=== PATIENT | male | born 2000 | race Caucasian/White ===

== ENCOUNTER 2025-04-01 10:53 | Outpatient (REF) | payer MEDICAID, SELFPAY ==
[2025-04-01 13:44] LABS: Alanine Aminotransferase 27 U/L (0-40); Albumin Level 5.0 g/dL (3.5-5.0); Alkaline Phosphatase 121 U/L (39-117); Anion Gap 15 (12-20); Aspartate Amino Transferase 28 U/L (5-37); Blood Urea Nitrogen 16 mg/dL (9-16); Calcium 9.6 mg/dL (8.4-10.2); Carbon Dioxide 26 mmol/L (22-29); Chloride 105 mmol/L (96-108); Estimated Glomerular Filt Rate > 60; Potassium 3.6 mmol/L (3.3-5.1); Sodium 142 mmol/L (135-145); Total Protein 8.2 g/dL (6.5-8.0)
--- OUTSIDE RECORDS SUMMARY | 2025-04-01 14:21 | XMS_ITS | Encounter Summary ---
Author Organization [facility] Address [address] [place] [address] Phone Care Team Providers Care High School Chemistry Teacher Name Role Phone Emily Muñoz MD Primary Care Provider Encounter Details Date Type Department Care Team (Late st Contact Info) Description 07/05/2016 Documentation [facility] [place] [address] [place] [address] Family Medicine, Physician [address] [place], [place] [address] Social History Tobacco Use Types Packs/Day Years Used Date Smoking Tobacco: Never Comments:Never smoker Sex and Gender Information Value Date Recorded Sex Assigned at Not on file Legal Sex Male 5:15 PM EDT Gender Identity Not on file Sexual Orientation Not on file documented as of this encounter Plan of Treatment Not on file documented as of this encounter Visit Diagnoses Not on filedocumented in this encounter Care Teams High School Chemistry Teacher Relationship Specialty Start Date End Date Emily Muñoz MD [address] [place] [address] [place] [address] PCP - General 12/16/16 06/15/21 Parmjit Barrientos [address] [place] [address] [place] [address] 08/02/18 06/15/21 documented as of this encounter
--- OUTSIDE RECORDS SUMMARY | 2025-04-01 14:21 | XMS_ITS | Encounter Summary ---
Author Organization [facility] Address [address] [place] [address] Phone Care Team Providers Care Retail Services Professional Name Role Phone Emily Muñoz MD Primary Care Provider [phone] Encounter Details Date Type Department Care Team (Late st Contact Info) Description 11/13/2014 Documentation [facility] [place] [address] [place] [address] Family Medicine, Physician [address] [place], [place] [phone] Social History Tobacco Use Types Packs/Day Years Used Date Smoking Tobacco: Never Assessed Sex and Gender Information Value Date Recorded Sex Assigned at Not on file Legal Sex Male 5:15 PM EDT Gender Identity Not on file Sexual Orientation Not on file documented as of this encounter Plan of Treatment Not on file documented as of this encounter Visit Diagnoses Not on filedocumented in this encounter Care Teams Retail Services Professional Relationship Specialty Start Date End Date Emily Muñoz MD [address] [place] [address] [place] [address] PCP - General 12/16/16 06/15/21 Parmjit Barrientos [address] [place] [address] 08/02/18 06/15/21 documented as of this encounter
--- OUTSIDE RECORDS SUMMARY | 2025-04-01 14:21 | XMS_ITS | Encounter Summary ---
Author Organization [facility] Address [address] [place] [address] Phone Care Team Providers Care Hogshead Salvage Name Role Phone Emily Muñoz MD Primary Care Provider [phone] Encounter Details Date Type Department Care Team (Late st Contact Info) Description 12/22/2016 Conversion Encounter [facility] [place] [address] [place] [address] Social History Tobacco Use Types Packs/Day Years [...] on filedocumented in this encounter Care Teams Hogshead Salvage Relationship Specialty Start Date End Date Emily Muñoz MD [address] [place] [address] PCP - General 12/16/16 06/15/21 Parmjit Barrientos [address] [place] [address] 08/02/18 06/15/21 documented as of this encounter
--- OUTSIDE RECORDS SUMMARY | 2025-04-01 14:21 | XMS_ITS | Encounter Summary ---
Author Organization [facility] Address [address] [place] [address] Phone Care Team Providers Care Exhibition Organiser Name Role Phone Emily Muñoz MD Primary Care Provider [phone] Encounter Details Date Type Department Care Team (Late st Contact Info) Description 08/15/2011 Documentation [facility] [place] Family Medicine [address] [place] [address] Family Medicine, Physician [address] [place], [place] [phone] Social History Tobacco Use Types Packs/Day Years [...] on filedocumented in this encounter Care Teams Exhibition Organiser Relationship Specialty Start Date End Date Emily Muñoz MD [address] [place] [address] [place] [address] PCP - General 12/16/16 06/15/21 Parmjit Barrientos [address] [place] [address] 08/02/18 06/15/21 documented as of this encounter
--- OUTSIDE RECORDS SUMMARY | 2025-04-01 14:21 | XMS_ITS | Encounter Summary ---
Author Organization [facility] Address [address] [place] [address] Phone Care Team Providers Care Machine Maintenance Technician Name Role Phone Emily Muñoz MD Primary Care Provider [phone] Encounter Details Date Type Department Care Team (Late st Contact Info) Description 01/21/2010 Documentation [facility] [place] Family Medicine [address] [place] [address] Family Medicine, Physician [address] [place], [place] [phone] Social History Tobacco Use Types Packs/Day Years [...] on filedocumented in this encounter Care Teams Machine Maintenance Technician Relationship Specialty Start Date End Date Emily Muñoz MD [address] [place] [address] [place] [address] PCP - General 12/16/16 06/15/21 Parmjit Barrientos [address] [place] [address] 08/02/18 06/15/21 documented as of this encounter
--- OUTSIDE RECORDS SUMMARY | 2025-04-01 14:21 | XMS_ITS | Encounter Summary ---
Author Organization [facility] Address [address] [place] [address] Phone Care Team Providers Care Merchant Police Name Role Phone Emily Muñoz MD Primary Care Provider [phone] Encounter Details Date Type Department Care Team (Late st Contact Info) Description 03/28/2011 Documentation [facility] [place] [address] [place] [address] Family Medicine, Physician [address] [place], [place] [phone] Social History Tobacco Use Types Packs/Day Years [...] on filedocumented in this encounter Care Teams Merchant Police Relationship Specialty Start Date End Date Emily Muñoz MD [address] [place] [address] [place] [address] PCP - General 12/16/16 06/15/21 Parmjit Barrientos [address] [place] [address] 08/02/18 06/15/21 documented as of this encounter
--- OUTSIDE RECORDS SUMMARY | 2025-04-01 14:21 | XMS_ITS | Encounter Summary ---
Author Organization [facility] Address [address] [place] [address] Phone Care Team Providers Care Dry Kiln Loader Name Role Phone Emily Muñoz MD Primary Care Provider [phone] Encounter Details Date Type Department Care Team (Late st Contact Info) Description 04/22/2015 Documentation [facility] [place] [address] [place] [address] Family Medicine, Physician [address] [place], [place] [phone] Social History Tobacco Use Types Packs/Day Years [...] on filedocumented in this encounter Care Teams Dry Kiln Loader Relationship Specialty Start Date End Date Emily Muñoz MD [address] [place] [address] [place] [address] PCP - General 12/16/16 06/15/21 Parmjit Barrientos [address] [place] [address] 08/02/18 06/15/21 documented as of this encounter
--- OUTSIDE RECORDS SUMMARY | 2025-04-01 14:21 | XMS_ITS | Clinical Summary ---
Author Organization [facility] Address [address] [place] [address] Phone Care Team Providers Care Property Damage Claims Adjustor Name Role Phone Unavailable Primary Care Provider Unavailabl e Allergies No known active allergies Medications Juluca 50-25 MG tablet 11/01/2019 Active Active Problems Patient Care Coordination No te Formatting of this note migh t be different from the original. Pt was seen by [facility] October 2018, f/u appt has been booked for Mar 25 at 4:30pm. Pt no-showed appt with Dr Barrientos in 2016. Has an appt on October 18, 2019 at 3:20pm. Pt was last seen by Patricia on 01/21/19. Mom states has had regular Dental check ups at [facility]. Mom was called today states she was hospitalized for 4 days to get treated. Per mom Hgb was 6. States her Iron is low. Sabina 03/26/19 Appt for Inf [facility] was booked for 04/22/19. Mom was made aware of appt. - Sabina 10/14/2019 Pt was seen by Dr Hawkins on 10/03/2019. Sarita Fenton CC Problem Noted Date Diagnosed Date Need for case management follow-up 11/04/2019 Overview (11/04/2019): 11/04/2019 : Alessandro who is 19yr was seen today during the covid 19 pandemic. 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 Dr Murphy strongly encouraged patient to exercise at least 3 days per week & if he wanted to continue to ambulate. 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 Followed by [facility] Compliance with Meds has been an issue Assessment & Plan (11/04/2019 3:52 PM EDT): Was seen by [facility] 08/2019 & 10/03/19. patient had stopped taking his medication - pill fatigue Viral load was still low Dr Ch started patient on Juluca (dolutegravir & rilpivirine) - he takes 1 pill daily Due for FU soon - does not have appt yet Assessment & Plan (08/02/2018 11:02 AM EDT): Last note from ID from 04/23/2018. Pt taking meds ~ 50% of the time Taking once daily Odefsey & Trivicay - forgets 2-3X/ week Last viral load was 38 (previously undetectable) & CD4 count 690 (previously >1000) Pt was to be seen in FU in 6 weeks - did not keep this appt Will do PPD today - FU in 2 days [facility] while help family to reconnect with [facility], [facility], Dr Joyce (ophthal) & dentist Learning disability Assessment & Plan (11/04/2019 3:52 PM EDT): Out of school Not working Offered Neuropsych testing to check cognitive functioning & need for further supports - declined at this time Assessment & Plan (08/02/2018 10:43 AM EDT): Grad from Summer 2017 Currently not in school or working Immunizations Immunization Administration Dates Next Due DTaP 5 05/25/2004, 2,09/21/2000,10/25,1999 H1N1 03/11/2009 HPV, Quadrivalent 03/17/2014,03/01/2013,02/20/20 12 Hep A, ped/adol 04/13/2015,03/17/2014 Hep B, ped/adol 04/18/2000,1999,1999 Hib (HbOC) 09/21/2000, 0,1999,08/23 IPV 05/25/2004, 0,1999,08/23 Influenza Split 03/01/2013,02/07/2012 Influenza, injectable, quadrivalent 03/15/2018,1 ,03/09/2015 Influenza, injectable, quadr ivalent, preservative free 02/10/2014 Influenza, injectable, trivalent 011,06/03/2009,01/22/2009,02/27,02/02/2007,03/22/2005,02/24/2004 ,02/24/2003,03/26/2002,02/21/2002 MMR 05/25/2004,09/21/2000 Meningococcal B Trumenba 11/27/2019 Meningococcal Conj (Menactra) MCV4P 07/05/2015,1 PPD Test 08/02/2018 Pneumococcal Conjugate 08/23/2001,05/16/2001 Pneumococcal Polysaccharide 11/24/2008, 7 Tdap 11/27/2019,02/16/2011 Varicella 12/09/2008,09/21/2000 Family History Medical History Relation Name Comments Hyperlipidemia Father Anemia Mother HIV Mother Relation Name Status Comments Father Alive Half-Brother Alive Half brother (M ): Alive and well Mother Other Family history of Diabetes mellitus, Family history of Hypertension Social History Tobacco Use Types Packs/Day Years Used Date Smoking Tobacco: Never Smokeless Tobacco: Never Comments:Never smoker Alcohol Use Standard Drinks/Week Comments Never 0 (1 standard drink = 0.6 oz pur e alcohol) Hunger/Food Answer Date Recorded In the last 12 months, did y ou or your family ever eat less than you felt you should because there wasn't enough money for food? No 11/04/2019 Stable Housing Answer Date Recorded Are you worried that in the next 2 months you may not have stable housing? No 11/04/2019 Transportation Concerns Answer Date Rec orded In the last 12 months, have you or your family ever had to go without healthcare because you didn't have a way to get there? No 11/04/2019 Hazards in Home Answer Date Recorded Think about the place you li ve. Do you have problems with any of the following? Pests (mice or roaches), mold, no/not working smoke detectors, water leaks, no window guards. No 2019 Financing Utilities Answer Date Recorde d In the last 12 months, has t he electric, gas, oil, or water company threatened to shut off your services in your home? No 11/04/2019 Safety at Home Answer Date Recorded Are you or your family worried about feeling saf e in your home? No 11/04/2019 Outside Support Answer Date Recorded Do you feel that you need mo re support from other people or programs to help you care for yourself or your family? No 11/04/2019 Understanding Health Concerns Answer Da te Recorded Do you need help understandi ng your or your child's healthcare needs (diagnosis, medications, plan, etc.)? No 11/04/2019 Financing Health Concerns Answer Date R ecorded In the last 12 months, was t here a time when your child needed to see a doctor or get medications or supplies but could not because of cost? No 11/04/2019 Missing School or Work Answer Date Kurt rded Did you or your child miss s chool or work because of a health problem that could have been avoided? No 11/04/2019 Sex and Gender Information Value Date Recorded Sex Assigned at Not on file Legal Sex Male 5:15 PM EDT Gender Identity Not on file Sexual Orientation Not on file Last Filed Vital Signs Vital Sign Reading Time Taken Comments Blood Pressure 119/79 08/02/2018 10:19 AM EDT Pulse 107 08/02/2018 10:19 AM EDT Temperature 36.4 C (97.5 F) 08/02/2018 10:19 AM EDT Respiratory Rate - - Oxygen Saturation 97% 12/02/2010 12:00 AM EDT Inhaled Oxygen Concentration - - Weight 75.8 kg (167 lb) 04/14/2016 12:00 AM EST Height 148.6 cm (4' 10.5 ) 04/14/2016 12:[address] Body Mass Index 34.31 04/14/2016 12:00 AM EST Plan of Treatment Health Maintenance Due Date Last Done Comments Men B Vaccine (2 of 2 - Trum enba SCDM 2-dose series) 05/29/2020 11/27/2019 Influenza Vaccines (#1) 2024 04/22/20, 03/15/2018, 06/12/2017, Additional history exists COVID-19 Vaccine ( - 2024-2 6 season) 2025 DTaP,Tdap,and Td Vaccines (8 - Td or Tdap) 11/26/2029 11/27/2019, 02/16/2011, 05/25/2004, Additional history exists Hepatitis B Vaccines Completed 04/18/2000, 1999, 1999 HIB Vaccines Completed 09/21/2000, 04/07, 1999, Additional history exists IPV Vaccines Completed 05/25/2004, 04/07, 1999, Additional history exists MMR Vaccines Completed 05/25/2004, 09/21/2000 Pneumococcal Vaccine Completed 11/24/2008, 12/08/2006, 08/23/2001, Additional history exists Varicella Vaccines Completed 12/09/2008, 09/21/2000 HPV Vaccines Completed 03/17/2014, 02/06, 02/20/2012 Hepatitis A Vaccines Completed 04/13/2015, 03/17/20 14 Meningococcal Vaccine Completed 07/05/2015, 011
--- OUTSIDE RECORDS SUMMARY | 2025-04-01 14:21 | XMS_ITS | Encounter Summary ---
Author Organization [facility] Address [address] [place] [address] Phone Care Team Providers Care Net Applications Developer Name Role Phone Emily Muñoz MD Primary Care Provider [phone] Encounter Details Date Type Department Care Team (Late st Contact Info) Description 10/22/2009 Documentation [facility] [place] [address] [place] [address] Family Medicine, Physician [address] [place], [place] [phone] Social History Tobacco Use Types Packs/Day Years [...] on filedocumented in this encounter Care Teams Net Applications Developer Relationship Specialty Start Date End Date Emily Muñoz MD [address] [place] [address] [place] [address] PCP - General 12/16/16 06/15/21 Parmjit Barrientos [address] [place] [address] 08/02/18 06/15/21 documented as of this encounter
[2025-04-02 05:39] LABS: HBS Num1 0.00 mIU/mL (0-7.99); HBc Num1 0.08 S/CO (0.00-0.79); HBsAGNum1 0.43 S/CO (0.00-0.99); Hepatitis B Surface Antigen Negative (Negative); ~HepC Num1 0.17 S/CO (0.00-0.79); ~Hepatitis B Surface Antibody NONREACTIVE (Nonreactive); ~Hepatitis C Antibody Nonreactive (Nonreactive)
[2025-04-02 06:28] LABS: Rubeola IgG (Measles) <13.50 AU/mL
[2025-04-04 01:24] LABS: TS Negative Control Passed; TS Panel A 0; TS Panel B 0; TS Positive Control Passed; TSpotTB Negative (Negative)
[2025-04-04 06:00] LABS: ~Hepatitis A Antibody IgG 6.68 S/CO (0.00-0.99)
[2025-04-04 17:52] LABS: HIV RNA PCR Qn Copies 129000 Copies/mL; HIV RNA PCR Qn Log Copies 5.11 Log cps/mL
[2025-04-06 16:38] LABS: Absolute CD3 Count 2041 cells/uL (840-3060); Absolute CD8 Count 1869 cells/uL (180-1170); Percent CD3 Cells 91 % (57-85); Percent CD8 Cells 83 % (12-42)
== END 2025-04-01 10:54 | disposition home or self-care (01) ==
LOC: HO.HHCL 10:53
PROVIDERS: Visit Provider Internal Medicine
DX: Z01.84 Encounter for antibody response examination (principal); Z11.59 Encounter for screening for other viral diseases; Z11.1 Encounter for screening for respiratory tuberculosis; B20 Human immunodeficiency virus [HIV] disease
CPT/HCPCS: 36415; 80053; 86359; 86360; 86481; 86704; 86706; 86708; 86735; 86762; 86765; 86803; 87340; 87536; 87900

== ENCOUNTER 2025-04-30 10:37 | Outpatient (REF) | payer MEDICAID, SELFPAY ==
--- OUTSIDE RECORDS SUMMARY | 2025-04-30 10:43 | XMS_ITS | Encounter Summary ---
Author Organization [facility] Address [address] [place] [address] Phone Care Team Providers Care Homemaker Companion Name Role Phone Emily Muñoz MD Primary Care Provider [phone] Encounter Details Date Type Department Care Team (Late st Contact Info) Description 04/22/2015 Documentation [facility] [place] [address] [place] [address] Family Medicine, Physician [address] [place], [place] [phone] Social History Tobacco Use Types Packs/Day Years [...] on filedocumented in this encounter Care Teams Homemaker Companion Relationship Specialty Start Date End Date Emily Muñoz MD [address] [place] [address] [place] [address] PCP - General 12/16/16 06/15/21 Parmjit Barrientos [address] [place] [address] 08/02/18 06/15/21 documented as of this encounter
--- OUTSIDE RECORDS SUMMARY | 2025-04-30 10:43 | XMS_ITS | Encounter Summary ---
Author Organization [facility] Address [address] [place] [address] Phone Care Team Providers Care Air Traffic Coordinator Name Role Phone Emily Muñoz MD Primary Care Provider [phone] Encounter Details Date Type Department Care Team (Late st Contact Info) Description 11/13/2014 Documentation [facility] [place] Family Medicine [address] [place] [address] Family Medicine, Physician [address] [place], [place] [phone] Social History Tobacco Use Types Packs/Day Years [...] on filedocumented in this encounter Care Teams Air Traffic Coordinator Relationship Specialty Start Date End Date Emily Muñoz MD [address] [place] [address] [place] [address] PCP - General 12/16/16 06/15/21 Parmjit Barrientos [address] [place] [address] 08/02/18 06/15/21 documented as of this encounter
--- OUTSIDE RECORDS SUMMARY | 2025-04-30 10:43 | XMS_ITS | Encounter Summary ---
Author Organization [facility] Address [address] [place] [address] Phone Care Team Providers Care Field Evidence Technician Name Role Phone Emily Muñoz MD Primary Care Provider [phone] Encounter Details Date Type Department Care Team (Late st Contact Info) Description 10/22/2009 Documentation [facility] [place] [address] [place] [address] Family Medicine, Physician [address] [place], [place] [phone] Social History Tobacco Use Types Packs/Day Years [...] on filedocumented in this encounter Care Teams Field Evidence Technician Relationship Specialty Start Date End Date Emily Muñoz MD [address] [place] [address] [place] [address] PCP - General 12/16/16 06/15/21 Parmjit Barrientos [address] [place] [address] 08/02/18 06/15/21 documented as of this encounter
--- OUTSIDE RECORDS SUMMARY | 2025-04-30 10:43 | XMS_ITS | Encounter Summary ---
Author Organization [facility] Address [address] [place] [address] Phone Care Team Providers Care Musical Therapist Name Role Phone Emily Muñoz MD Primary Care Provider [phone] Encounter Details Date Type Department Care Team (Late st Contact Info) Description 08/15/2011 Documentation [facility] [place] [address] [place] [address] Family Medicine, Physician [address] [place], [place] [phone] Social History Tobacco Use Types Packs/Day Years [...] on filedocumented in this encounter Care Teams Musical Therapist Relationship Specialty Start Date End Date Emily Muñoz MD [address] [place] [address] [place] [address] PCP - General 12/16/16 06/15/21 Parmjit Barrientos [address] [place] [address] 08/02/18 06/15/21 documented as of this encounter
--- OUTSIDE RECORDS SUMMARY | 2025-04-30 10:43 | XMS_ITS | Encounter Summary ---
Author Organization [facility] Address [address] [place] [address] Phone Care Team Providers Care Federal Agent Name Role Phone Emily Muñoz MD Primary Care Provider [phone] Encounter Details Date Type Department Care Team (Late st Contact Info) Description 12/22/2016 Conversion Encounter [facility] [place] [address] [place] [address] Social History Tobacco Use Types Packs/Day Years [...] on filedocumented in this encounter Care Teams Federal Agent Relationship Specialty Start Date End Date Emily Muñoz MD [address] [place] [address] PCP - General 12/16/16 06/15/21 Parmjit Barrientos [address] [place] [address] 08/02/18 06/15/21 documented as of this encounter
--- OUTSIDE RECORDS SUMMARY | 2025-04-30 10:43 | XMS_ITS | Encounter Summary ---
Author Organization [facility] Address [address] [place] [address] Phone Care Team Providers Care Construction Area Manager Name Role Phone Emily Muñoz MD Primary Care Provider [phone] Encounter Details Date Type Department Care Team (Late st Contact Info) Description 03/28/2011 Documentation [facility] [place] [address] [place] [address] Family Medicine, Physician [address] [place], [place] [phone] Social History Tobacco Use Types Packs/Day Years [...] on filedocumented in this encounter Care Teams Construction Area Manager Relationship Specialty Start Date End Date Emily Muñoz MD [address] [place] [address] [place] [address] PCP - General 12/16/16 06/15/21 Parmjit Barrientos [address] [place] [address] 08/02/18 06/15/21 documented as of this encounter
--- OUTSIDE RECORDS SUMMARY | 2025-04-30 10:43 | XMS_ITS | Encounter Summary ---
Author Organization [facility] Address [address] [place] [address] Phone Care Team Providers Care Web Marketing Specialist Name Role Phone Emily Muñoz MD Primary Care Provider [phone] Encounter Details Date Type Department Care Team (Late st Contact Info) Description 01/21/2010 Documentation [facility] [place] Family Medicine [address] [place] [address] Family Medicine, Physician [address] [place], [place] [phone] Social History Tobacco Use Types Packs/Day Years [...] on filedocumented in this encounter Care Teams Web Marketing Specialist Relationship Specialty Start Date End Date Emily Muñoz MD [address] [place] [address] [place] [address] PCP - General 12/16/16 06/15/21 Parmjit Barrientos [address] [place] [address] 08/02/18 06/15/21 documented as of this encounter
--- OUTSIDE RECORDS SUMMARY | 2025-04-30 10:43 | XMS_ITS | Clinical Summary ---
Author Organization [facility] Address [address] [place] [id number] Phone Care Team Providers Care Clockmaker Apprentice Name Role Phone Unavailable Primary Care Provider [...] has had regular Dental check ups at [facility]. Mom was called today states she was [...] PM EDT): Needs help transitioning to adult clipper operator & Rehab medicine MEDICAL MANAGER TAX will work with family to make this happen Cerebral palsy with spastic diplegia Overview (08/02/2018): Due to his HIV Assessment & Plan (11/04/2019 2:11 PM EDT): Got fitted for new wheelchair 02/2019 Last seen by Rehab MD at [facility] 12/2018. Dr Murphy strongly encouraged patient to exercise at least 3 days per week & if he wanted to continue to ambulate. She also encouraged him to maintain a normal wt [facility] encouraged patient to transition to Adult rehab MD - will ask MEDICAL MANAGER TAX to assist family with this transition & also to assist with transition to adult auto dismantler patient does not wear his braces - has not for years Assessment & Plan (08/02/2018 10:47 AM EDT): Has not been seen at [facility] in years Does not wear AFOs in [...] 2017 Currently not in school or working Encounters Date Type Department Care Team Description 04/17/2025 Telephone [facility] - [address] [address] Quyen Penaloza MD Medical Records from Last 3 Months Immunizations Immunization Administration Dates Next Due DTaP [...] series) 05/29/2020 11/27/2019 Influenza Vaccines (#1) 2024 04/22/20 19, 03/15/2018, 06/12/2017, Additional history exists COVID-19 Vaccine (1 - 2024-2 6 season) 2025 DTaP,Tdap,and Td [...]
--- OUTSIDE RECORDS SUMMARY | 2025-04-30 10:43 | XMS_ITS | Encounter Summary ---
Author Organization [facility] Address [address] [place] [address] Phone Care Team Providers Care Topography Technician Name Role Phone Emily Muñoz MD Primary Care Provider [phone] Encounter Details Date Type Department Care Team (Late st Contact Info) Description 07/05/2016 Documentation [facility] Family Medicine [address] [place] [address] Family Medicine, Physician [address] [place], [place] [id number] Social History Tobacco Use Types Packs/Day Years [...] on filedocumented in this encounter Care Teams Topography Technician Relationship Specialty Start Date End Date Emily Muñoz MD [address] [place] [address] [place] [id number] PCP - General 12/16/16 06/15/21 Parmjit Barrientos [address] [place] [address] [place] [address] 08/02/18 06/15/21 documented as of this encounter
[2025-04-30 14:41] LABS: Appearance Urine Cloudy; Glucose Urine UA Negative (Negative); PH 5.5 (5.0-9.0); Specific Gravity - Urine 1.025 (1.005-1.025); UMIC TRIGGER UACC YES
[2025-04-30 14:54] LABS: MANUAL DIFF FLAG NO
[2025-04-30 15:12] LABS: Hematocrit 48.9 % (42.0-52.0); Hemoglobin 16.3 g/dl (14.0-18.0); Imm Gran Abs Auto 0.01 X10*3/uL (0.00-0.03); Imm Gran Pct Auto 0.2 % (0.0-0.4); Lymphocytes Absolute Auto 2.1 X10*3/uL (1.2-4.9); Mean Corpuscular HGB Conc 33.3 g/dl (31.0-36.0); Mean Corpuscular Hemoglobin 28.3 pg (27.0-33.0); Mean Corpuscular Volume 84.9 fL (80.0-98.0); NRBC Abs Auto 0.000 X10*3/uL (0.0-0.012); NRBC Pct Auto 0.0 /100WBC (0.0-0.2); Platelet Count 194 X10*3/uL (160-400); Red Blood Count 5.76 X10*6/uL (4.60-5.80); White Blood Count 5.5 X10*3/uL (4.8-10.8)
[2025-05-02 03:25] LABS: Syphilis Screen Nonreactive (Nonreactive)
== END 2025-04-30 10:38 | disposition home or self-care (01) ==
LOC: HO.HHCL 10:37
PROVIDERS: Internal Medicine; PCP Student in an Organized Health Care Education/Training Program; Visit Provider Student in an Organized Health Care Education/Training Program
DX: B20 Human immunodeficiency virus [HIV] disease (principal); Z11.1 Encounter for screening for respiratory tuberculosis; Z01.84 Encounter for antibody response examination; Z11.3 Encounter for screening for infections with a predominantly sexual mode of transmission
CPT/HCPCS: 36415; 81001; 82955; 83036; 85025; 86644; 86645; 86777; 86778; 86780; 86787; 87906